=== PATIENT | male | born 1990 | race Caucasian/White ===

== ENCOUNTER 2016-09-25 15:40 | Emergency (ER) | payer BC ==
[2016-09-25 15:52] VITALS: RESP 18; TEMP 97.7; O2SAT 98
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
[2016-09-25] MEDS ORDERED: RALTEGRAVIR 400 MG TAB PO ONE (17:56)
[2016-09-25] MEDS ORDERED: EMTRICITABINE/TENOFOVIR 200MG/300MG TAB PO ONE (18:08)
[2016-09-25 18:15] LABS: COLOR COLORLESS; LEUKOCYTE ESTERASE,URINE NEGATIVE (NEGATIVE); NITRITE,URINE NEGATIVE (NEGATIVE)
[2016-09-25 18:25] VITALS: BP 138/87; PULSE 88
[2016-09-26 13:32] LABS: CHLAMYDIA AMPLIFICATION GENPRB NEGATIVE (NEGATIVE)
[2016-09-26] MEDS ORDERED: EMTRICITABINE/TENOFOVIR 200MG/300MG TAB PO ONE (17:56)
[2016-09-27 13:20] LABS: HSV1 IGG ANTIBODY Negative (Negative); HSV2 IGG ANTIBODY Negative (Negative)
[2016-09-27 21:49] LABS: HSV 1/2 IGM IFA Negative (Negative)
== END 2016-09-25 18:22 | disposition home or self-care (01) ==
DX: R41.3 Other amnesia (principal); F10.99 Alcohol use, unspecified with unspecified alcohol-induced disorder; Z72.89 Other problems related to lifestyle
CPT/HCPCS: 86694-90

== ENCOUNTER 2017-09-14 05:01 | Emergency (ER) | payer BC ==
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
[2017-09-14 05:14] VITALS: TEMP 97.5
[2017-09-14 05:32] LABS: PLATELET COUNT 257 10^3/uL (150-400)
[2017-09-14 08:01] VITALS: BP 133/92; PULSE 109; RESP 18; O2SAT 96
== END 2017-09-14 09:18 | disposition home or self-care (01) ==
LOC: EEVIPCON 05:01
DX: F10.129 Alcohol abuse with intoxication, unspecified (principal)
CPT/HCPCS: 80305; G0480